=== PATIENT | female | born 1975 | race African-American/Black ===

== ENCOUNTER 2023-09-30 16:35 | Emergency (ER) | payer OTHER, SELFPAY ==
--- NOTE | ~2023-09-30 | CT_ITS ---
EXAMINATION: CT ABDOMEN AND PELVIS WITHOUT CONTRAST CLINICAL INFORMATION: Question obstruction COMPARISON: None available. TECHNIQUE: Multidetector volumetric imaging was performed from the superior aspect of the liver through the pubic symphysis. Sagittal and coronal reformatted images were obtained on the technologist's workstation. This CT examination was performed using dose optimization techniques as appropriate, variously including the following: *Automated exposure control *Adjustment of mA and/or kV according to patient size (this includes techniques or standardized protocols for targeted exams where dose is matched to indication/reason for exam; i.e. extremities or head) *Use of iterative reconstruction technique DLP: 455 mGy-cm FINDINGS: LUNG BASES: The visualized lung bases are unremarkable. LIVER, GALLBLADDER, AND BILIARY TREE: Nonspecific hepatomegaly. Small cysts noted right lobe. Liver attenuation appears borderline increased. No gross biliary ductal dilatation. Small gallstones within the gallbladder lumen without acute inflammatory changes. PANCREAS: Unremarkable. SPLEEN: Unremarkable. ADRENAL GLANDS: Unremarkable. KIDNEYS AND URETERS: The kidneys are normal in size, shape, and attenuation. No hydronephrosis, hydroureter, or calculi seen. No perinephric stranding. BLADDER: Unremarkable. GASTROINTESTINAL TRACT: Limited imaging due to lack of contrast and body habitus. There is moderate amount stool throughout the colon. Cecal base appears grossly unremarkable although the appendix is not definitively identified. No definite acute inflammatory changes. Bowel gas has somewhat disorganized with no multiple air-fluid levels noted within small bowel loops which are mildly prominent throughout. The transition zone definitively seen to indicate obstruction. No bowel wall thickening or pneumatosis intestinalis. No free fluid. ABDOMINAL WALL: No significant hernia is appreciated. LYMPH NODES: Normal. VASCULAR: Unremarkable. PELVIC VISCERA: Pelvic organs appear to be surgically absent. OSSEOUS STRUCTURES: Unremarkable. CT/CT abdomen pelvis wo IV con IMPRESSION: 1. Limited imaging due to lack of contrast and body habitus. There are multiple air-fluid levels within mildly prominent small bowel loops which are nonspecific. No transition zone definitively seen to indicate obstruction. No bowel wall thickening or pneumatosis intestinalis. Correlate clinically and follow-up accordingly. 2. Nonspecific hepatomegaly. 3. Gallstones without acute inflammatory changes. Fleischner guidelines were followed.
--- NOTE | ~2023-09-30 | XR_ITS ---
EXAMINATION: XR CHEST CLINICAL INFORMATION: Wheezing COMPARISON: None available. TECHNIQUE: 2 views of the chest were obtained. FINDINGS: No significant abnormality is noted involving the heart, lungs, mediastinum, bony thorax or soft tissues. XR/XR chest 2V IMPRESSION: Unremarkable examination.
--- NOTE | ~2023-09-30 | CT_ITS ---
EXAMINATION: CT ABDOMEN AND PELVIS WITH CONTRAST CLINICAL INFORMATION: Abdominal pain. COMPARISON: None available. TECHNIQUE: Multidetector volumetric images were obtained from the superior aspect of the liver through the pubic symphysis following administration 85 mL of Omnipaque 350 intravenous contrast. Sagittal and coronal reformatted images were obtained on the technologist's workstation. Oral contrast: No This CT examination was performed using dose optimization techniques as appropriate, variously including the following: *Automated exposure control *Adjustment of mA and/or kV according to patient size (this includes techniques or standardized protocols for targeted exams where dose is matched to indication/reason for exam; i.e. extremities or head) *Use of iterative reconstruction technique DLP: 564 mGy-cm FINDINGS: LUNG BASES: The visualized lung bases are unremarkable. LIVER, GALLBLADDER, AND BILIARY TREE: There are scattered hepatic hypodensities some too small to characterize but all likely small cysts. There is no intrahepatic biliary duct dilatation. Multiple gallstones are noted. PANCREAS: Unremarkable. SPLEEN: Unremarkable. ADRENAL GLANDS: Unremarkable. KIDNEYS AND URETERS: The kidneys are normal in size, shape, and attenuation. No hydronephrosis, hydroureter, or calculi seen. No perinephric stranding. BLADDER: Unremarkable. GASTROINTESTINAL TRACT: There is retained stool. Orally ingested contrast material reaches the descending colon. Small tubular structure along the cecum is likely a normal appendix. ABDOMINAL WALL: No significant hernia is appreciated. LYMPH NODES: Normal. VASCULAR: There is atherosclerotic plaque of the abdominal aorta and proximal branches. PELVIC VISCERA: Unremarkable. OSSEOUS STRUCTURES: Unremarkable. CT/CT abdomen pelvis w IV con IMPRESSION: 1. No acute abnormality. 2. Cholelithiasis without evidence of acute cholecystitis. 3. Retained stool throughout the colon. Fleischner guidelines were followed.
[2023-09-30 16:47] VITALS: BP 94/68; PULSE 81; O2SAT 95
[2023-09-30 17:10] VITALS: BP 116/77; BP 94/68; PULSE 75; PULSE 81; RESP 16; TEMP 36.7; O2SAT 95; O2SAT 96; BMI 24.4
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
--- NOTE | 2023-09-30 18:58 | MHC.EDTECH ---
THIS TECH TOOK OVER AT 1900
[2023-09-30] MEDS: Acetaminophen 325 MG TABLET 975 MG PO (18:59)
--- NOTE | 2023-09-30 19:08 | PC.NURSE ---
this rn assumed care of pt, pt resting in stretcher, no acute distress noted. 2 Publishing Manager at bedside. labs being obtained at this time.
[2023-09-30 19:31] LABS: Basophils Percent Auto 0.3 % (0-2); Eosinophils Absolute Auto 0.3 X10*3/uL (0.0-0.4); Eosinophils Percent Auto 3.6 % (0-4); Hematocrit 35.6 % (37.0-47.0); Hemoglobin 11.7 g/dl (12.0-16.0); Imm Gran Abs Auto 0.02 X10*3/uL (0.00-0.03); Imm Gran Pct Auto 0.3 % (0.0-0.4); Lymphocytes Absolute Auto 3.3 X10*3/uL (1.2-4.9); Lymphocytes Percent Auto 43.7 % (20-40); MANUAL DIFF FLAG SCAN; Mean Corpuscular HGB Conc 32.9 g/dl (31.0-35.0); Mean Corpuscular Hemoglobin 31.4 pg (27.0-33.0); Mean Corpuscular Volume 95.4 fL (80.0-98.0); Mean Platelet Volume 8.6 fL (9.4-12.3); Monocytes Absolute Auto 0.6 X10*3/uL (0.1-1.2); Monocytes Percent Auto 7.5 % (2-11); Neutrophils Absolute Auto 3.4 x10*3/uL (2.0-8.3); Neutrophils Percent Auto 44.6 % (45-73); Platelet Count 334 X10*3/uL (160-400); Red Blood Count 3.73 X10*6/uL (4.20-5.50); Red Cell Distribution Width 13.3 % (11.0-16.0); SCAN SMEAR FLAG 1; White Blood Count 7.5 X10*3/uL (4.8-10.8)
[2023-09-30 19:47] VITALS: BP 105/62; PULSE 75; RESP 17; TEMP 37.1; O2SAT 96
[2023-09-30 19:55] LABS: Alanine Aminotransferase 48 U/L (0-31); Albumin Level 3.9 g/dL (3.5-5.0); Alkaline Phosphatase 130 U/L (39-117); Anion Gap 12 (12-20); Aspartate Amino Transferase 32 U/L (5-31); Bilirubin Total 0.2 mg/dL (0.0-1.0); Blood Urea Nitrogen 14 mg/dL (9-16); Calcium 9.9 mg/dL (8.4-10.2); Carbon Dioxide 28 mmol/L (22-29); Chloride 104 mmol/L (96-108); Creatinine Clr Calc Pharmacy 94.2; Estimated Glomerular Filt Rate > 60; Glucose Random 96 mg/dL (60-115); Lipase 20 U/L (8-78); Magnesium 2.2 mg/dL (1.6-2.6); Potassium 4.1 mmol/L (3.3-5.1); Sodium 140 mmol/L (135-145); Total Protein 6.8 g/dL (6.5-8.0)
[2023-09-30 19:56] LABS: HCG Quantitative < 2 mIU/mL
[2023-09-30 19:59] LABS: Influenza A PCR NEGATIVE (Negative); Influenza B PCR NEGATIVE (Negative); Resp Syncy Virus RNA Qual PCR NEGATIVE (Negative); SARS COV2 PCR INHOUSE NEGATIVE (Negative)
[2023-09-30 21:43] LABS: SLIDE REVIEW VERIFIED
--- NOTE | 2023-09-30 22:21 | PC.NURSE ---
20G placed in pt right AC at this time, no acute distress noted, deputy sheriff bailiff at bedside.
[2023-09-30 23:12] VITALS: BP 118/69; PULSE 76; RESP 16; TEMP 36.5; O2SAT 95
[2023-10-01] MEDS: 0.9 % Sodium Chloride 1,000 ML 999 ML IV (00:03)
[2023-10-01 00:09] LABS: Appearance Urine Clear; Color Urine Yellow; Glucose Urine UA Negative (Negative); Leukocyte Esterase Urine Negative (Negative); Nitrite Urine Negative (Negative); Urine Blood Negative (Negative); Urine Ketones Negative (Negative); Urine Protein Negative (Neg-Trace)
[2023-10-01] MEDS: Diatrizoate Meglumine, Sodium 30 ML SOLUTION PO (00:23)
[2023-10-01] MEDS: iohexoL 350 MG/ML 100 ML INFUS..BTL 85 ML IV (00:24)
[2023-10-01 01:18] LABS: Lactic Acid 1.2 mmol/L (0.5-2.0)
[2023-10-01] MEDS: Milk of Magnesia 30 ML ORAL.SUSP PO (02:21)
[2023-10-01] MEDS: bisacodyL 5 MG TABLET.DR 10 MG PO (02:21)
--- NOTE | 2023-10-01 02:38 | PC.NURSE ---
discharge papers given to Danial at bedside, pt taken out with danial.
[2023-10-01 02:41] VITALS: BP 118/69; PULSE 76; RESP 16; TEMP 36.5; O2SAT 95
--- NOTE | 2023-10-01 02:45 | PC.NURSE ---
report given to brianna pope at [facility].
== END 2023-10-01 02:46 | disposition home or self-care (01) ==
PROVIDERS: Physician Assistant Medical; Emergency Provider Emergency Medicine
DX: K59.00 Constipation, unspecified (principal); K80.20 Calculus of gallbladder without cholecystitis without obstruction; R10.2 Pelvic and perineal pain; F11.20 Opioid dependence, uncomplicated; R06.2 Wheezing; R11.0 Nausea; Z11.52 Encounter for screening for COVID-19; Z20.822 Contact with and (suspected) exposure to COVID-19; Z79.899 Other long term (current) drug therapy
CPT/HCPCS: 0241U; 36415; 71046; 74176; 74177; 80053; 81003; 83605; 83690; 83735; 84702; 85025; 96360; 99285; Q9967

== ENCOUNTER 2024-02-20 08:16 | Outpatient (AMB) | payer OTHER, SELFPAY ==
[2024-02-20 08:26] VITALS: BP 115/62; PULSE 72; O2SAT 96; BMI 24.5
--- NOTE | 2024-02-20 08:26 | A.OFFVIS_ITS ---
Vital Signs 02/20/24 08:26 Height 5 ft 7 in Weight 156 lb 8.451 oz BMI 24.5 BP 115/62 Blood Pressure Location Lt brachial Position Sitting Pulse 72 Pulse Source Pulse Oximeter Pulse Oximetry (%) 96 Oxygen Delivery Method Room Air Intake Visit Reasons: Chronic Pain Allergies fish derived [fish] Allergy (Verified 02/20/24 08:31) Unknown trazodone Adverse Reaction (Verified 02/20/24 08:31) Unknown Medication List - Last Reconciled 02/20/24 by Amy Whitley acetaminophen 650 mg PO Q6H PRN albuterol 90 mcg/actuation mcg inhalation aluminum-magnesium hydroxide 200-200 mg/5 mL 5 mL PO Q4-6H PRN baclofen 5 mg PO BID benzocaine-menthol 15-2.6 mg (Cepacol Sore Throat (benzocaine-menthol)) 1 carole mucous membrane Q2H PRN bisacodyl (Dulcolax (bisacodyl)) 10 mg (2 x 5 mg) PO BEDTIME PRN buprenorphine HCl 4 mg sublingual DAILY clonazepam (Klonopin) 0.5 mg PO BID clonidine HCl 0.1 mg PO TID clotrimazole 1% 1 appl topical BID docusate sodium 100 mg PO DAILY duloxetine (Cymbalta) 60 mg PO DAILY ergocalciferol (vitamin D2) 1,250 mcg PO .month famotidine (Pepcid) 20 mg PO BID hydroxyzine pamoate 50 mg PO QID PRN lactulose 20 grams PO ONCE magnesium citrate 148 mg PO DAILY mirtazapine 30mg 2 tabs orally bedtime; naproxen 500 mg PO BID nicotine 1 patch transdermal DAILY ondansetron HCl 4 mg PO Q6H paliperidone palmitate 234 mg IM Q30D pantoprazole (Protonix) 20 mg PO DAILY polyethylene glycol 3350 (Miralax) 17 grams PO DAILY HPI Comments Details: Mitra is a very pleasant 48-year-old female who presents the office today, accompanied by the Plastics Production Machine Operator's Department, for evaluation and management of her chronic pain She endorses all-over pain, back, abdomen, legs, knees that started when she was a young child. History of opiate use disorder, currently on Subutex but states that it makes her bloated and nauseous. Previously she was on methadone which helped her pain and treated her opiate use disorder. She is looking to transition back to methadone She is currently taking Tylenol, naproxen and baclofen without improvement. In the past she was prescribed gabapentin though today she is not able to report if it helped her pain or not She has never had injections her pain. Denies history of PT, acupuncture, massage, chiropractor. Currently resides in a secure mental health facility as ordered by the court. Denies red flag symptoms including new loss of bowel, bladder or saddle anesthesia History of substance use disorder: Marijuana and opiates Denies current use of anticoagulants Denies implantable devices, pacemaker defibrillator [facility] Medical History (Updated 02/20/24 @ 11:45 by Lizbeth Fish APRN, ELECTRONIC ORGAN TECHNICIAN) Chronic pain Asthma Traumatic brain injury depression PTSD (post-traumatic stress disorder) Schizophrenia Social History (Updated 02/20/24 @ 11:46 by Lizbeth Fish APRN, ELECTRONIC ORGAN TECHNICIAN) Patient Tobacco Use Status: Current everyday Tobacco user Substance Use Type: Marijuana and Opiates Physical Exam Vital Signs: Last Vital Signs Pulse 72 02/20/24 08:26 BP 115/62 02/20/24 08:26 Pulse Ox 96 02/20/24 08:26 Oxygen Delivery Method Room Air 02/20/24 08:26 BMI result Body Mass Index 24.5 General: awake, alert, oriented. Answers questions appropriately. Withdrawn. Wearing shackles to the wrist and ankles, accompanied by heat treater apprentice's department. Skin: warm, dry, intact HEENT: Normocephalic. Hearing intact. Cardiac: External chest normal in appearance. Respiratory: No cough, audible wheezing or stridor. Abdomen: without gross distension. MS: No obvious swelling or deformities. Able to transition from sit to stand unassisted. Ambulates with bilaterally normal heel strike and toe off Neurological: Oriented to person, place, time and situation. Thought process intact. No gait abnormalities appreciated. Psychiatric: Appropriate mood and affect. Good judgment and insight. Results Reviewed Results Reviewed: 10/01/2023 CT/CT abdomen pelvis w IV con FINDINGS: LUNG BASES: The visualized lung bases are unremarkable. LIVER, GALLBLADDER, AND BILIARY TREE: There are scattered hepatic hypodensities some too small to characterize but all likely small cysts. There is no intrahepatic biliary duct dilatation. Multiple gallstones are noted. PANCREAS: Unremarkable. SPLEEN: Unremarkable. ADRENAL GLANDS: Unremarkable. KIDNEYS AND URETERS: The kidneys are normal in size, shape, and attenuation. No hydronephrosis, hydroureter, or calculi seen. No perinephric stranding. BLADDER: Unremarkable. GASTROINTESTINAL TRACT: There is retained stool. Orally ingested contrast material reaches the descending colon. Small tubular structure along the cecum is likely a normal appendix. ABDOMINAL WALL: No significant hernia is appreciated. LYMPH NODES: Normal. VASCULAR: There is atherosclerotic plaque of the abdominal aorta and proximal branches. PELVIC VISCERA: Unremarkable. OSSEOUS STRUCTURES: Unremarkable. IMPRESSION: 1. No acute abnormality. 2. Cholelithiasis without evidence of acute cholecystitis. 3. Retained stool throughout the colon. Assessment & Plan Assessment & Plan (1) Substance use disorder: Code(s): F19.90 - Other psychoactive substance use, unspecified, uncomplicated Category: Medical Plan Mitra presented to the office today for evaluation management of her chronic pain. History of substance use disorder, currently on Subutex. She is requesting to be transitioned to methadone that she was previously prescribed for substance use disorder. Advised patient that this is not a service that we provide at this office. Referral was placed for addiction medicine as the [facility] not provide methadone. [address] [address] [email or web address] [phone] All questions and concerns were answered, patient agrees with the plan. Orders: Referrals Addiction Medicine Referral F19.90 - Other psychoactive substance use, unspecified, uncomplicated Coding Level of Care Code New Pt Level 4 (61838) Diagnoses Substance use disorder F19.90
== END 2024-02-20 09:05 | disposition home or self-care (01) ==
PROVIDERS: Referring Provider Psychiatry & Neurology Geriatric Psychiatry; Visit Provider Registered Nurse Emergency
DX: F19.90 Other psychoactive substance use, unspecified, uncomplicated (principal)
CPT/HCPCS: 99204

== ENCOUNTER → 2024-02-20 08:16 | Outpatient (BNVA) | payer OTHER, SELFPAY | PROVIDERS: Referring Provider Psychiatry & Neurology Geriatric Psychiatry; Visit Provider Registered Nurse Emergency | DX: F19.90 Other psychoactive substance use, unspecified, uncomplicated (principal) | CPT/HCPCS: 99202 ==

== ENCOUNTER 2024-03-15 10:57 | Outpatient (AMB) | payer OTHER, SELFPAY ==
--- NOTE | 2024-03-15 11:07 | A.OFFVIS_ITS ---
Vital Signs 03/15/24 11:10 Height 5 ft 7 in Weight 176 lb 12.972 oz BMI 27.7 BP 108/71 Blood Pressure Location Rt brachial Position Sitting Pulse 97 Intake Visit Reasons: Abdominal Pains. Intake Note: Patient here c/o abdominal pain. Feels bloated. Patient c/o: constipation, nausea. Denies bleeding with BM. Tire Worker Required: No Accompanied by: Correctional officers Allergies fish derived [fish] Allergy (Verified 02/20/24 08:31) Unknown trazodone Adverse Reaction (Verified 02/20/24 08:31) Unknown HPI HPI Abdominal Pains.: Details: HPI 48 yr f here for assessment for Gi symptoms She is at [facility] accompanied by today She goes to the toilet every other day stool comes out normal no blood is seen she denies abdominal pain she has chronic nausea which is pretty bad for her, she is on benztropine and paliperidone IM as well as suboxone, prn haldol she has issues with swallowing, might not be related to food she has severe heartburn she takes miralax, but she feesl it gives her heartburn she has never had endoscopy or colonoscopy ROS: Constitutional : No Weight loss, No Fever, No Chills ENT/Mouth : No sore throat, No Rhinorrhea Eyes: No Swelling, No Redness Cardiovascular : No Chest Pain, No SOB, No Edema Respiratory : No Cough, No Sputum, No Wheezing Gastrointestinal : see HPI Genitourinary : NO Dysuria, No Urinary Frequency, No Hematuria, No Urgency Musculoskeletal : No joint pain, No Myalgias, No Joint Swelling Skin : No Skin Lesions, No rash Neuro : No Weakness, No Numbness, No Dizziness, No Headache Psych : No Anxiety/Panic, No Depression Heme/Lymph: No Bruising, No Lymphadenopathy Endocrine : No Polyuria, No Polydipsia All other systems reviewed and are negative. Medical History Low BP anxiety and depression schizophrenia Surgical History none Family History unknown type of cancer in family Social History she denies smoking, opiate abuse, no IVDA< no snorting EXAM: GENERAL: The patient is well developed and nontoxic. VITAL SIGNS:see workflow HEENT: Nonicteric sclerae, PERRLA, EOMI. Oropharynx clear. Moist mucous membranes. Conjunctivae appear well perfused. No thyroid mass. CHEST: Chest wall is nontender. HEART: Regular rate and rhythm without murmurs. LUNGS: Clear to auscultation bilaterally. ABDOMEN: Soft, positive bowel sounds, nontender, no organomegaly.no flank tenderness SKIN: No rash, no excessive bruising, petechiae, or purpura. NEUROLOGIC: Cranial nerves II-XII intact without motor/sensory deficit. Psych: normal affect A/P: 1/ Nausea and reflux, on several medications which might be predisposing to this by causing reduced gastric emptying or colonic inertia 2/ Abn LFT per lab review, not known to have hep b,c 3/ mild anemia, not had period for 5 yrs Plan: 1/ check labs, incl hep serologies, hematinics 2/ EGD and colonoscopy for eval of nausea, anemia, reflux--can use suprep--will send message to the scheduling time with the facility 3/ can cont with current laxatives per [place] -- [facility] Medical History (Updated 03/15/24 @ 11:58 by Ely Heath MD) Chronic pain Asthma Traumatic brain injury depression PTSD (post-traumatic stress disorder) Schizophrenia Social History (Updated 02/20/24 @ 11:46 by Lizbeth Fish APRN, OFFICE 365 CONSULTANT) Patient Tobacco Use Status: Current everyday Tobacco user Substance Use Type: Marijuana and Opiates Physical Exam Vital Signs: Last Vital Signs Pulse 97 03/15/24 11:10 BP 108/71 03/15/24 11:10 BMI result Body Mass Index 27.7 Assessment & Plan Assessment & Plan (1) Nausea: Code(s): R11.0 - Nausea Category: Medical Plan: as above (2) Anemia: Code(s): D64.9 - Anemia, unspecified Category: Medical Plan: as above Orders: Orders Complete Blood Count Auto Diff Today D64.9 - Anemia, unspecified, R11.0 - Nausea TSH reflex Free T4 Today D64.9 - Anemia, unspecified, R11.0 - Nausea Vitamin B12 and Folate Today D64.9 - Anemia, unspecified, R11.0 - Nausea Ferritin Today D64.9 - Anemia, unspecified, R11.0 - Nausea C Reactive Protein Today D64.9 - Anemia, unspecified, R11.0 - Nausea Creatine Kinase Total Today D64.9 - Anemia, unspecified, R11.0 - Nausea UA CC w/rflx Micro + Cult Today D64.9 - Anemia, unspecified, R11.0 - Nausea, R30.0 - Dysuria Magnesium Today D64.9 - Anemia, unspecified, R11.0 - Nausea Comprehensive Met. Panel Today D64.9 - Anemia, unspecified, K75.81 - Nonalcoholic steatohepatitis (PINEDO), R11.0 - Nausea Hepatitis A,B,C Profile Today D64.9 - Anemia, unspecified, R11.0 - Nausea Immunoglobulins,IgG IgA IgM Today D64.9 - Anemia, unspecified, R11.0 - Nausea Zinc Today D64.9 - Anemia, unspecified, R11.0 - Nausea Coding Level of Care Code New Pt Level 4 (60713) Diagnoses Nausea R11.0 Anemia D64.9
[2024-03-15 11:10] VITALS: BP 108/71; PULSE 97; BMI 27.7
== END 2024-03-15 12:19 | disposition home or self-care (01) ==
PROVIDERS: Visit Provider Internal Medicine Gastroenterology
DX: R11.0 Nausea (principal); D64.9 Anemia, unspecified
CPT/HCPCS: 99204

== ENCOUNTER → 2024-03-15 10:57 | Outpatient (BNVA) | payer OTHER, SELFPAY | PROVIDERS: Visit Provider Internal Medicine Gastroenterology | DX: R11.0 Nausea (principal); D64.9 Anemia, unspecified | CPT/HCPCS: 99202 ==

== ENCOUNTER 2024-04-02 08:31 | Day surgery (SDC) | payer OTHER, SELFPAY ==
[2024-04-02 09:14] VITALS: BMI 27.4
[2024-04-02 09:28] VITALS: BP 150/93; PULSE 92; RESP 14; TEMP 36.4; O2SAT 95
--- NOTE | 2024-04-02 09:30 | P.CONAN_ITS ---
Documented by User: Ines Jara NP 03/29/24 10:54 HPI - Anesthesia Eval Consult details Narrative: 48yo F for Upper Endoscopy and Colonoscopy [facility] resident. Will be accompanied by virgil. Hx poly sub, on subutex? Hx TBI PMFSH Active Problems Active Problems: All Active Problems Anemia (Acute) Nausea (Acute) Chronic pain (Acute) Substance use disorder (Acute) Past Medical History Medical History (Updated 03/15/24 @ 11:58 by Ely Heath MD) Chronic pain Asthma Traumatic brain injury depression PTSD (post-traumatic stress disorder) Schizophrenia Surgical History Surgical History (Updated 04/02/24 @ 09:17 by Selene Alvares RN) Hx of tubal ligation Social History Social History (Updated 02/20/24 @ 11:46 by Lizbeth Fish APRN, CORE INSERTER) Patient Tobacco Use Status: Current everyday Tobacco user Substance Use Type: Marijuana and Opiates Advance Directives: No Advance Directives Information Provided: Yes Meds Allergies Allergy/AdvReac Type Severity Reaction Status Date / Time fish derived [fish] Allergy Unknown Verified 02/20/24 08:31 trazodone AdvReac Unknown Verified 02/20/24 08:31 Home Medications ?Medication ?Instructions ?Recorded ?Confirmed ?Last Taken ?Type acetaminophen 325 mg tablet 650 mg PO Q6H PRN 02/15/24 02/20/24 Unknown History aluminum-magnesium hydroxide 200 5 ml PO Q4-6H PRN 02/15/24 02/20/24 Unknown History mg-200 mg/5 mL oral suspension baclofen 5 mg tablet 5 mg PO BID 02/15/24 02/20/24 Unknown History benzocaine 15 mg-menthol 2.6 mg 1 carole mucous membrane Q2H PRN 02/15/24 02/20/24 Unknown History lozenges (Cepacol Sore Throat (benzocaine-menthol)) clonazepam 0.5 mg tablet (Klonopin) 0.5 mg PO BID 02/15/24 02/20/24 Unknown History clonidine HCl 0.1 mg tablet 0.1 mg PO TID 02/15/24 02/20/24 Unknown History clotrimazole 1 % topical cream 1 appl topical BID 02/15/24 02/20/24 Unknown History duloxetine 60 mg capsule,delayed 60 mg PO DAILY 02/15/24 02/20/24 Unknown History release (Cymbalta) ergocalciferol (vitamin D2) 1,250 1,250 mcg PO .month 02/15/24 02/20/24 Unknown History mcg (50,000 unit) capsule hydroxyzine pamoate 50 mg capsule 50 mg PO QID PRN 02/15/24 02/20/24 Unknown History magnesium citrate 125 mg capsule 148 mg PO DAILY 02/15/24 02/20/24 Unknown History mirtazapine 30 mg tablet See Rx Instructions PO BEDTIME 02/15/24 02/20/24 Unknown History naproxen 500 mg tablet 500 mg PO BID 02/15/24 02/20/24 Unknown History albuterol 90 mcg/actuation aerosol mcg inhalation 02/20/24 02/20/24 Unknown History inhaler buprenorphine HCl 2 mg sublingual 4 mg sublingual DAILY 02/20/24 02/20/24 Unknown History tablet docusate sodium 100 mg capsule 100 mg PO DAILY 02/20/24 02/20/24 Unknown History famotidine 20 mg tablet (Pepcid) 20 mg PO BID 02/20/24 02/20/24 Unknown History lactulose 20 gram/30 mL oral 20 g PO ONCE 02/20/24 02/20/24 Unknown History solution nicotine 14 mg/24 hr daily 1 patch transdermal DAILY 02/20/24 02/20/24 Unknown History transdermal patch ondansetron HCl 4 mg tablet 4 mg PO Q6H 02/20/24 02/20/24 Unknown History paliperidone palmitate 234 mg/1.5 234 mg IM Q30D 02/20/24 02/20/24 Unknown History mL intramuscular syringe pantoprazole 20 mg tablet,delayed 20 mg PO DAILY 02/20/24 02/20/24 Unknown History release (Protonix) Assessment and Plan Assessment Anesthesia Assessment: Chart Reviewed Documented by User: Lyndsey Pitt DO 04/02/24 09:34 HPI - Anesthesia Eval Consult details Narrative: 48yo F for Upper Endoscopy and Colonoscopy [facility] resident. Will be accompanied by publications inspector. Hx poly sub - on subutex Hx TBI but able to sign own consents. [facility] Past Medical History Medical History (Updated 03/15/24 @ 11:58 by Ely Heath MD) Chronic pain Asthma Traumatic brain injury depression PTSD (post-traumatic stress disorder) Schizophrenia Family History Family history of problems with anesthesia: No Surgical History Surgical History (Updated 04/02/24 @ 09:17 by Selene Alvares RN) Hx of tubal ligation History of Problems with Anesthesia: No Social History Social History (Updated 02/20/24 @ 11:46 by Lizbeth Fish APRN, CORE INSERTER) Patient Tobacco Use Status: Current everyday Tobacco user Substance Use Type: Marijuana and Opiates Advance Directives: No Advance Directives Information Provided: Yes Meds Allergies Allergy/AdvReac Type Severity Reaction Status Date / Time fish derived [fish] Allergy Unknown Verified 02/20/24 08:31 trazodone AdvReac Unknown Verified 02/20/24 08:31 Home Medications ?Medication ?Instructions ?Recorded ?Confirmed ?Last Taken ?Type acetaminophen 325 mg tablet 650 mg PO Q6H PRN 02/15/24 02/20/24 Unknown History aluminum-magnesium hydroxide 200 5 ml PO Q4-6H PRN 02/15/24 02/20/24 Unknown History mg-200 mg/5 mL oral suspension baclofen 5 mg tablet 5 mg PO BID 02/15/24 02/20/24 Unknown History benzocaine 15 mg-menthol 2.6 mg 1 carole mucous membrane Q2H PRN 02/15/24 02/20/24 Unknown History lozenges (Cepacol Sore Throat (benzocaine-menthol)) clonazepam 0.5 mg tablet (Klonopin) 0.5 mg PO BID 02/15/24 02/20/24 Unknown History clonidine HCl 0.1 mg tablet 0.1 mg PO TID 02/15/24 02/20/24 Unknown History clotrimazole 1 % topical cream 1 appl topical BID 02/15/24 02/20/24 Unknown History duloxetine 60 mg capsule,delayed 60 mg PO DAILY 02/15/24 02/20/24 Unknown History release (Cymbalta) ergocalciferol (vitamin D2) 1,250 1,250 mcg PO .month 02/15/24 02/20/24 Unknown History mcg (50,000 unit) capsule hydroxyzine pamoate 50 mg capsule 50 mg PO QID PRN 02/15/24 02/20/24 Unknown History magnesium citrate 125 mg capsule 148 mg PO DAILY 02/15/24 02/20/24 Unknown History mirtazapine 30 mg tablet See Rx Instructions PO BEDTIME 02/15/24 02/20/24 Unknown History naproxen 500 mg tablet 500 mg PO BID 02/15/24 02/20/24 Unknown History albuterol 90 mcg/actuation aerosol mcg inhalation 02/20/24 02/20/24 Unknown History inhaler buprenorphine HCl 2 mg sublingual 4 mg sublingual DAILY 02/20/24 02/20/24 Unknown History tablet docusate sodium 100 mg capsule 100 mg PO DAILY 02/20/24 02/20/24 Unknown History famotidine 20 mg tablet (Pepcid) 20 mg PO BID 02/20/24 02/20/24 Unknown History lactulose 20 gram/30 mL oral 20 g PO ONCE 02/20/24 02/20/24 Unknown History solution nicotine 14 mg/24 hr daily 1 patch transdermal DAILY 02/20/24 02/20/24 Unknown History transdermal patch ondansetron HCl 4 mg tablet 4 mg PO Q6H 02/20/24 02/20/24 Unknown History paliperidone palmitate 234 mg/1.5 234 mg IM Q30D 02/20/24 02/20/24 Unknown History mL intramuscular syringe pantoprazole 20 mg tablet,delayed 20 mg PO DAILY 02/20/24 02/20/24 Unknown History release (Protonix) Exam Exam Date and Time: 04/02/24 0930 Height,Weight and Vital Signs: Height 5 ft 7 in Weight 79.379 kg Airway Mallampati Class: II TM Dist: >3cm Neck ROM: Full Denture: Upper and Lower Heart: S1S2 Lungs: CTAB Assessment and Plan Assessment Anesthesia Assessment: Anesthesia Plan Discussed and Chart Reviewed Final Anesthetic Review Family History of Problems with Anesthesia: No History of Problems with Anesthesia: No NPO: Yes ASA Class: III Final Preanesthetic Review: No Changes in Pt Med Stat, Meds/Allgs Chart Reviewed, Consent Obtained/Reviewed and Anes Risks/Benef Reviewed Patient Risk: Intermediate Procedure Risk: Low Anesthetic Plan Anesthetic Plan: MAC: and Agree w/ Assess. and Plan Disposition: Standard PACU
--- NOTE | 2024-04-02 09:49 | MHC.SHP ---
Pre-Procedural Eval Section A - 24 Hr Update-Section A only Date of Service: 04/02/24 The patient is an INPATIENT: No The patient has been examined within 24 hours of the surgical procedure. The History & Physical has been completed within 30 days and I have reviewed it.: Yes Section B - Complete if H&P > 30 days Chief Complaint: Anemia, unspecified Allergies: Allergies Allergy/AdvReac Type Severity Reaction Status Date / Time fish derived [fish] Allergy Unknown Verified 02/20/24 08:31 trazodone AdvReac Unknown Verified 02/20/24 08:31 Plan Diagnosis/Plan: Unchanged I have reviewed the history and physical and performed a pertinent physical examination on my patient. No changes have occurred unless specified. egd,colo Time Spent With Patient Time: Total time managing care of this patient today ____ minutes.
--- NOTE | 2024-04-02 10:33 | P.OPN-COLO_ITS ---
Colonoscopy Operative Note Operative Note Date of Service: 04/02/24 Narrative: Operative Information Procedure Description: EGD, Colonoscopy Indication: anemia, nausea Anesthesia: MAC FLEXIBLE TRANSORAL UPPER GASTROINTESTINAL ENDOSCOPY AND COLONOSCOPY PROCEDURE NOTE UPPER ENDOSCOPY Consent: Indications for the procedure and potential complications of bleeding, perforation, reaction to medications and missed diagnosis were discussed with the patient and informed consent was obtained. Instrument: Olympus GIF H 190 J mid size upper endoscope Monitoring: Vital signs and clinical assessment, continuous EKG monitoring, Pulse oximetry, Carbon Dioxide monitoring and blood pressure monitoring were done throughout the procedure. Procedure: The patient was placed in the left lateral decubitis position and pre-procedure medications were administered and a bite block was placed. The endoscope was inserted into the mouth and advanced under direct vision to the third part of duodenum. A careful inspection was made as the upper endoscope was withdrawn including a retroflexed examination of the proximal stomach; Findings and interventions are described below. Findings: Larynx:normal Esophagus: GE junction at 37 cm, diaphragm hiatus at 37 cm, erosive streaks consistent with LA grade D esophagitis Stomach: Normal mucosa. Biopsies were obtained. Grade 2 flap valve on retroflexed examination of the cardia. Duodenum: Normal bulb and descending duodenum, bx taken Intervention: Biopsies as noted above, COLONOSCOPY Instrument: Olympus variable stiffness pediatric scope 190L Colonoscopy Monitoring: Vital signs and clinical assessment, continuous EKG monitoring, Pulse oximetry, Carbon Dioxide monitoring and blood pressure monitoring were done throughout the procedure. Colon withdrawal time was 11 minutes. Procedure: The patient was placed in the left lateral decubitis position and pre-procedure medications were administered. After a digital rectal examination of the ano-rectum, the video colonoscope was inserted into the rectum and advanced through the colon to the cecum/TI. The colonoscope was slowly withdrawn in a retrograde panoramic fashion and the colon mucosa was carefully examined including a retroflexed view of the rectum. Findings and interventions are described below. Procedure Difficulty:moderate Findings: Terminal Ileum-normal, random bx taken Random colon bx taken Cecum:normal Ascending Colon: 7-9 mm flat polyp injected with eleview and removed with cold snare Transverse Colon -normal Descending Colon:normal Sigmoid Colon: normal Rectum: Retroflexion with moderate sized internal hemorrhoids, grade I Anorectum - normal Colon preparation: [place] Bowel Preparation Scale Right colon; 2 Transverse colon: 2 Left colon; 1 (0 = Unprepared colon segment with mucosa not seen due to solid stool that cannot be cleared. 1 = Portion of mucosa of the colon segment seen, but other areas of the colon segment not well seen due to staining, residual stool and/or opaque liquid. 2 = Minor amount of residual staining, small fragments of stool and/or opaque liquid, but mucosa of colon segment seen well. 3 = Entire mucosa of colon segment seen well with no residual staining, small fragments of stool or opaque liquid) Impression and Post Procedure Diagnosis: Endoscopy Findings: erosive esophagitis Colonoscopy Findings: colon polyp internal hemorrhoids Plan: Await Pathology results Repeat Colonoscopy in 6-12 months or earlier if clinically indicated High fiber diet leaflet avoid straining at stool, epsom salts and sitz bath, anusol supps or cream High dose PPI e.g pantoprazole 40 mg BID, and repeat EGD in 6-12 months to document healing and r/o underlying barretts Above findings were reviewed with the patient and relevant handouts were provided if indicated.
[2024-04-02 10:45] VITALS: BP 93/60; PULSE 88; RESP 16; TEMP 36.1; O2SAT 94
[2024-04-02 11:00] VITALS: BP 135/47; PULSE 79; RESP 16; TEMP 36.1; O2SAT 96
== END 2024-04-02 11:23 | disposition home or self-care (01) ==
PROVIDERS: PCP Psychiatry & Neurology Psychiatry; Visit Provider Internal Medicine Gastroenterology
PROC: (CPT 45385; principal; 2024-04-02 10:00)
DX: Z12.11 Encounter for screening for malignant neoplasm of colon (principal); K63.5 Polyp of colon; K64.0 First degree hemorrhoids; D64.9 Anemia, unspecified; R11.0 Nausea; K29.50 Unspecified chronic gastritis without bleeding; B96.81 Helicobacter pylori [H. pylori] as the cause of diseases classified elsewhere; K20.80 Other esophagitis without bleeding; K44.9 Diaphragmatic hernia without obstruction or gangrene; K75.81 Nonalcoholic steatohepatitis (NASH); J45.909 Unspecified asthma, uncomplicated; F41.8 Other specified anxiety disorders; F20.9 Schizophrenia, unspecified; F43.10 Post-traumatic stress disorder, unspecified; G89.29 Other chronic pain; Z87.820 Personal history of traumatic brain injury; Z88.8 Allergy status to other drugs, medicaments and biological substances
CPT/HCPCS: 45385; 45380; 45381; 43239; 88305; 88313; 88342; J1100; J1596; J2003; J2704

== ENCOUNTER → 2024-04-02 08:31 | Outpatient (BNV) | payer OTHER, SELFPAY | PROVIDERS: PCP Psychiatry & Neurology Psychiatry; Visit Provider Internal Medicine Gastroenterology | DX: D64.9 Anemia, unspecified (principal); K29.70 Gastritis, unspecified, without bleeding; K20.90 Esophagitis, unspecified without bleeding; K63.5 Polyp of colon; K64.0 First degree hemorrhoids | CPT/HCPCS: 43239; 45380; 45381 ==

== ENCOUNTER 2024-07-29 11:44 | Outpatient (AMB) | payer OTHER, SELFPAY ==
--- NOTE | 2024-07-29 11:47 | MHC.OFFVIS ---
Vital Signs 07/29/24 11:48 Height 5 ft 7 in Weight 176 lb 5.917 oz BMI 27.6 BP 90/50 L Blood Pressure Location Lt brachial Position Sitting Pulse 81 Intake Visit Reasons: folloew up Intake Note: Mitra presents in the office as a follow up. CC: She states she gets some pains in the stomach and denies diarrhea - she does get constipation. Band And Cuff Cutter Required: No Allergies fish derived [fish] Allergy (Verified 02/20/24 08:31) Unknown trazodone Adverse Reaction (Verified 02/20/24 08:31) Unknown HPI HPI folloew up: Details: 48 yr f here for f/u RECAP She is at [facility] issues with nausea, heartburn EGD/[place]: 04/02/24 pos for h pylori--sent rx with quadruple therapy HP polyp on ascending colon INTERIM: appetite is not that great swallowing is better heartburn is gone v mild and occasional constipation she has urine discomfort and burning EXAM: GENERAL: The patient is well developed and nontoxic. VITAL SIGNS:see workflow HEENT: Nonicteric sclerae, PERRLA, EOMI. Oropharynx clear. Moist mucous membranes. Conjunctivae appear well perfused. No thyroid mass. CHEST: Chest wall is nontender. HEART: Regular rate and rhythm without murmurs. LUNGS: Clear to auscultation bilaterally. ABDOMEN: Soft, positive bowel sounds, nontender, no organomegaly.no flank tenderness SKIN: No rash, no excessive bruising, petechiae, or purpura. NEUROLOGIC: Cranial nerves II-XII intact without motor/sensory deficit. Psych: slightly flat affect but approriate A/P: 1/ Nausea and reflux, on several medications which might be predisposing to this by causing reduced gastric emptying or colonic inertia but found to havr h pylori, now treated with improvement 2/ Abn LFT per lab review, not known to have hep b,c 3/ colo polyp, hyperplastic Plan: 1/ re check LFT--will send order to [facility], as well as [facility], hep serologies 2/ she wanted to hold on colonoscopy repeat 3/ check h pylori breath test, confirm her med list with [facility] Medical History Chronic pain Asthma Traumatic brain injury depression PTSD (post-traumatic stress disorder) Schizophrenia Surgical History Hx of tubal ligation Social History Patient Tobacco Use Status: Never used Tobacco Substance Use Type: Marijuana and Opiates Physical Exam Vital Signs: BMI result Body Mass Index 27.6 Assessment & Plan Assessment & Plan (1) Anemia: Code(s): D64.9 - Anemia, unspecified Category: Medical Plan: as above (2) Abnormal LFTs: Code(s): R79.89 - Other specified abnormal findings of blood chemistry Category: Medical Plan: as above Orders: Orders Complete Blood Count Auto Diff Today D64.9 - Anemia, unspecified, R79.89 - Other specified abnormal findings of blood chemistry Comprehensive Met. Panel Today D64.9 - Anemia, unspecified, K75.81 - Nonalcoholic steatohepatitis (PINEDO), R79.89 - Other specified abnormal findings of blood chemistry Creatine Kinase Total Today D64.9 - Anemia, unspecified, R79.89 - Other specified abnormal findings of blood chemistry Hepatitis A,B,C Profile Today D64.9 - Anemia, unspecified, R79.89 - Other specified abnormal findings of blood chemistry Coding Level of Care Code Est Pt Level 3 (15357) Diagnoses Anemia D64.9 Abnormal LFTs R79.89
[2024-07-29 11:48] VITALS: BP 90/50; PULSE 81; BMI 27.6
== END 2024-07-29 13:15 | disposition home or self-care (01) ==
PROVIDERS: PCP Psychiatry & Neurology Psychiatry; Visit Provider Internal Medicine Gastroenterology
DX: D64.9 Anemia, unspecified (principal); R79.89 Other specified abnormal findings of blood chemistry
CPT/HCPCS: 99213

== ENCOUNTER → 2024-07-29 11:44 | Outpatient (BNVA) | payer OTHER, SELFPAY | PROVIDERS: PCP Psychiatry & Neurology Psychiatry; Visit Provider Internal Medicine Gastroenterology | DX: K59.00 Constipation, unspecified (principal); K75.81 Nonalcoholic steatohepatitis (NASH); R10.9 Unspecified abdominal pain; D64.9 Anemia, unspecified; R79.89 Other specified abnormal findings of blood chemistry | CPT/HCPCS: 99212 ==

== ENCOUNTER 2025-01-07 08:33 | Day surgery (SDC) | payer OTHER, SELFPAY ==
--- OUTSIDE RECORDS SUMMARY | 2024-12-17 14:03 | XMS_ITS | Patient Health Record ---
Author Organization [facility] Address [address], [place] [id number] Care Team Providers Care High [employer] Academic Coach Name Role Phone [employer] - DO NOT USE, Housing Application Prim gilliam Care Provider Unavailable Sobeida Myers Unavailable [facility] Sania ge Unavailable Reason For Referral No Information Plan Of Treatment No Information Insurance Providers Payer Name Payer Address Payer Phone Subscriber Number Group Number Insured Name Patient Relationship to Insured Coverage Start Date Coverage End Date [facility] [employer] [address] [place] [phone] [id number] Mitra Randolph Self - patient is the insured 2 2
--- NOTE | 2025-01-06 14:50 | HO.ANESPROP2 ---
Documented by User: Annabel Arriaza NP 01/06/25 14:51 HPI - Anesthesia Eval Consult details Narrative: 49 yr old female for upper endoscopy, colonoscopy. s/p same procedures 03/2024 H/O tubal ligation PMFSH Active Problems Active Problems: All Active Problems Abnormal LFTs (Acute) Anemia (Acute) Nausea (Acute) Substance use disorder (Acute) Chronic pain (Acute) Past Medical History Medical History Resides in [facility] Chronic pain Asthma Traumatic brain injury depression PTSD (post-traumatic stress disorder) Schizophrenia Family History Family history of problems with anesthesia: No Surgical History Surgical History H/O colonoscopy Hx of tubal ligation History of Problems with Anesthesia: No Social History Social History Patient Tobacco Use Status: Never used Tobacco Substance Use Type: Marijuana and Opiates Advance Directives: No Advance Directives Information Provided: Yes Meds Allergies Allergy/AdvReac Type Severity Reaction Status Date / Time fish derived (fish) Allergy Unknown Unknown Verified 11/08/24 13:45 trazodone AdvReac Unknown Unknown Verified 11/08/24 13:45 Home Medications ?Medication ?Instructions ?Recorded ?Confirmed ?Last Taken ?Type acetaminophen 325 mg tablet 650 mg PO Q6H PRN Pain 02/15/24 01/07/25 Unknown History aluminum-magnesium hydroxide 200 5 ml PO Q4-6H PRN gi upset 02/15/24 01/07/25 Unknown History mg-200 mg/5 mL oral suspension baclofen 5 mg tablet 5 mg PO BID 02/15/24 01/07/25 Unknown History clonazepam 0.5 mg tablet (Klonopin) 0.5 mg PO BID 02/15/24 01/07/25 01/07/25 History clonidine HCl 0.1 mg tablet 0.1 mg PO TID 02/15/24 01/07/25 01/07/25 History duloxetine 60 mg capsule,delayed 60 mg PO DAILY 02/15/24 01/07/25 01/07/25 History release (Cymbalta) hydroxyzine pamoate 50 mg capsule 50 mg PO QID PRN Anxiety 02/15/24 01/07/25 Unknown History mirtazapine 30 mg tablet See Rx Instructions PO BEDTIME 02/15/24 01/07/25 Unknown History docusate sodium 100 mg capsule 100 mg PO DAILY 02/20/24 01/07/25 Unknown History famotidine 20 mg tablet (Pepcid) 20 mg PO BID 02/20/24 01/07/25 01/07/25 History paliperidone palmitate 234 mg/1.5 234 mg IM Q30D 02/20/24 01/07/25 Unknown History mL intramuscular syringe albuterol sulfate 90 mcg/actuation 2 puff inhalation Q4-6H PRN 11/08/24 01/07/25 01/07/25 History aerosol inhaler (Ventolin HFA) Shortness Of Breath Or Wheezing lactulose 10 gram/15 mL oral 10 g PO DAILY 11/08/24 01/07/25 Unknown History solution methadone 10 mg tablet 40 mg PO DAILY 11/08/24 01/07/25 01/07/25 History zolpidem 5 mg tablet 5 mg PO BEDTIME 11/08/24 01/07/25 Unknown History Assessment and Plan Final Anesthetic Review Family History of Problems with Anesthesia: No History of Problems with Anesthesia: No Documented by User: Sandeep Funk MD 01/07/25 09:18 [facility] Past Medical History Medical History Resides in [facility] Chronic pain Asthma Traumatic brain injury depression PTSD (post-traumatic stress disorder) Schizophrenia Functional capacity: independent ambulation Surgical History Surgical History H/O colonoscopy Hx of tubal ligation Social History Social History Patient Tobacco Use Status: Never used Tobacco Substance Use Type: Marijuana and Opiates Advance Directives: No Advance Directives Information Provided: Yes Meds Allergies Allergy/AdvReac Type Severity Reaction Status Date / Time fish derived (fish) Allergy Unknown Unknown Verified 11/08/24 13:45 trazodone AdvReac Unknown Unknown Verified 11/08/24 13:45 Home Medications ?Medication ?Instructions ?Recorded ?Confirmed ?Last Taken ?Type acetaminophen 325 mg tablet 650 mg PO Q6H PRN Pain 02/15/24 01/07/25 Unknown History aluminum-magnesium hydroxide 200 5 ml PO Q4-6H PRN gi upset 02/15/24 01/07/25 Unknown History mg-200 mg/5 mL oral suspension baclofen 5 mg tablet 5 mg PO BID 02/15/24 01/07/25 Unknown History clonazepam 0.5 mg tablet (Klonopin) 0.5 mg PO BID 02/15/24 01/07/25 01/07/25 History clonidine HCl 0.1 mg tablet 0.1 mg PO TID 02/15/24 01/07/25 01/07/25 History duloxetine 60 mg capsule,delayed 60 mg PO DAILY 02/15/24 01/07/25 01/07/25 History release (Cymbalta) hydroxyzine pamoate 50 mg capsule 50 mg PO QID PRN Anxiety 02/15/24 01/07/25 Unknown History mirtazapine 30 mg tablet See Rx Instructions PO BEDTIME 02/15/24 01/07/25 Unknown History docusate sodium 100 mg capsule 100 mg PO DAILY 02/20/24 01/07/25 Unknown History famotidine 20 mg tablet (Pepcid) 20 mg PO BID 02/20/24 01/07/25 01/07/25 History paliperidone palmitate 234 mg/1.5 234 mg IM Q30D 02/20/24 01/07/25 Unknown History mL intramuscular syringe albuterol sulfate 90 mcg/actuation 2 puff inhalation Q4-6H PRN 11/08/24 01/07/25 01/07/25 History aerosol inhaler (Ventolin HFA) Shortness Of Breath Or Wheezing lactulose 10 gram/15 mL oral 10 g PO DAILY 11/08/24 01/07/25 Unknown History solution methadone 10 mg tablet 40 mg PO DAILY 11/08/24 01/07/25 01/07/25 History zolpidem 5 mg tablet 5 mg PO BEDTIME 11/08/24 01/07/25 Unknown History Exam Exam Date and Time: 01/07/2025 Airway TM Dist: >3cm Neck ROM: Full Denture: Upper (parial upper denture) Loose/Missing/Broken Teeth: Yes (mulpile missing teeth) Heart: rrr Lungs: cta Assessment and Plan Assessment Anesthesia Assessment: Anesthesia Plan Discussed Final Anesthetic Review NPO: Yes ASA Class: II Final Preanesthetic Review: No Changes in Pt Med Stat, Meds/Allgs Chart Reviewed, Consent Obtained/Reviewed and Anes Risks/Benef Reviewed Patient Risk: Low Procedure Risk: Low Anesthetic Plan Disposition: Standard PACU
[2025-01-07 07:54] VITALS: BMI 27.7
--- NOTE | 2025-01-07 07:58 | PC.NURSE ---
spoke to nurse where patient resides [facility] went over prep, results, and meds. patient does sign for self section 12 to facility will accompany patient npo after midnight
[2025-01-07 08:43] VITALS: BP 129/78; PULSE 73; RESP 20; TEMP 36.4; O2SAT 97; BMI 28.9
--- NOTE | 2025-01-07 08:53 | P.HPSUR_ITS ---
Pre-Procedural Eval Section A - 24 Hr Update-Section A only Date of Service: 01/07/25 Section B - Complete if H&P > 30 days Chief Complaint: Gastro-esophageal reflux disease with esophagitis, Relevant Family History (Specify if Yes): No Relevant Social History: None Present Medications: see Short Stay Collaborative assessment Medical History: Significant History (Resides in [facility] care facility Chronic pain Asthma Traumatic brain injury depression PTSD (post-traumatic stress disorder) Schizophrenia) History of Previous Operations: Relevant previous surgery/procedure and date(s) ( H/O colonoscopy Hx of tubal ligation) Allergies: Allergies Allergy/AdvReac Type Severity Reaction Status Date / Time fish derived (fish) Allergy Unknown Unknown Verified 11/08/24 13:45 trazodone AdvReac Unknown Unknown Verified 11/08/24 13:45 Review of Systems Sugical H&P ROS: Negative: Constitution, Cardiovascular, Respiratory, Neurological, Psychiatric, Hem-Onc, Allergic/Immunologic, Gastrointestinal, Genitourinary, Musculoskeletal, Integumentary, Endocrine and Eyes/Ears/Nose/Throat Exam Surgical H&P Exam: Normal: HEENT, Normal: Heart, Normal: Lungs, Normal: Extremities, Normal: Abdomen, Normal: Skin and Normal: Neurological Plan Diagnosis/Plan: Unchanged I have reviewed the history and physical and performed a pertinent physical examination on my patient. No changes have occurred unless specified. Time Spent With Patient Time: Total time managing care of this patient today ____ minutes.
[2025-01-07] MEDS: Lactated Ringers 1,000 ML 100 ML IVCONT (09:01)
--- NOTE | 2025-01-07 09:53 | HO.OPN-COLON ---
Colonoscopy Operative Note Operative Note Date of Service: 01/07/25 Narrative: Operative Information Procedure Description: EGD, Colonoscopy Indication: hx of esophagitis and polyp, fair prep Anesthesia: MAC FLEXIBLE TRANSORAL UPPER GASTROINTESTINAL ENDOSCOPY AND COLONOSCOPY PROCEDURE NOTE UPPER ENDOSCOPY Consent: Indications for the procedure and potential complications of bleeding, perforation, reaction to medications and missed diagnosis were discussed with the patient and informed consent was obtained. Instrument: Olympus GIF H 190 J mid size upper endoscope Monitoring: Vital signs and clinical assessment, continuous EKG monitoring, Pulse oximetry, Carbon Dioxide monitoring and blood pressure monitoring were done throughout the procedure. Procedure: The patient was placed in the left lateral decubitis position and pre-procedure medications were administered and a bite block was placed. The endoscope was inserted into the mouth and advanced under direct vision to the third part of duodenum. A careful inspection was made as the upper endoscope was withdrawn including a retroflexed examination of the proximal stomach; Findings and interventions are described below. Findings: Larynx:normal Esophagus: GE junction at 37 cm, diaphragm hiatus at 37 cm, erosive streaks consistent with LA grade D esophagitis as before Stomach:Patchy erythema. Biopsies were obtained. Grade 2 flap valve on retroflexed examination of the cardia. On the posterior wall a gastroenteric anastomosis was noted, not seen at last EGD, in addition to what appeared to be a preserved pylorus. bx taken from around anasotmosis as there appeared to be some areas of metaplasia Duodenum: Normal bulb and descending duodenum Intervention: Biopsies as noted above, COLONOSCOPY Instrument: Olympus variable stiffness pediatric scope 190L Colonoscopy Monitoring: Vital signs and clinical assessment, continuous EKG monitoring, Pulse oximetry, Carbon Dioxide monitoring and blood pressure monitoring were done throughout the procedure. Colon withdrawal time was 7 minutes. Procedure: The patient was placed in the left lateral decubitis position and pre-procedure medications were administered. After a digital rectal examination of the ano-rectum, the video colonoscope was inserted into the rectum and advanced through the colon to the cecum/TI. The colonoscope was slowly withdrawn in a retrograde panoramic fashion and the colon mucosa was carefully examined including a retroflexed view of the rectum. Findings and interventions are described below. Procedure Difficulty:moderate Findings: Terminal Ileum-not intubated Cecum:normal Ascending Colon: normal Transverse Colon -normal Descending Colon:normal Sigmoid Colon: normal Rectum: Retroflexion with medium sized internal hemorrhoids, grade I Anorectum - normal Colon preparation: [place] Bowel Preparation Scale Right colon; 1-2 Transverse colon: 1-2 Left colon; 1-2 (0 = Unprepared colon segment with mucosa not seen due to solid stool that cannot be cleared. 1 = Portion of mucosa of the colon segment seen, but other areas of the colon segment not well seen due to staining, residual stool and/or opaque liquid. 2 = Minor amount of residual staining, small fragments of stool and/or opaque liquid, but mucosa of colon segment seen well. 3 = Entire mucosa of colon segment seen well with no residual staining, small fragments of stool or opaque liquid) Impression and Post Procedure Diagnosis: Endoscopy Findings: erosive esophagitis post surgical changes Colonoscopy Findings: internal hemorrhoids Plan: Await Pathology results Repeat Colonoscopy in 1-2 years due to prep or earlier if clinically indicated High fiber diet leaflet avoid straining at stool, epsom salts and sitz bath, anusol supps or cream stop famotidine and use esomeprazole 20 mg Above findings were reviewed with the patient and relevant handouts were provided if indicated.
[2025-01-07 09:58] VITALS: BP 117/58; PULSE 69; RESP 18; TEMP 36.4; O2SAT 98
[2025-01-07 10:13] VITALS: PULSE 73; RESP 14; O2SAT 98
== END 2025-01-07 10:46 | disposition home or self-care (01) ==
PROVIDERS: Visit Provider Internal Medicine Gastroenterology
PROC: (CPT 45378; principal; 2025-01-07 09:10)
DX: Z12.11 Encounter for screening for malignant neoplasm of colon (principal); K64.0 First degree hemorrhoids; K59.00 Constipation, unspecified; R10.9 Unspecified abdominal pain; K21.00 Gastro-esophageal reflux disease with esophagitis, without bleeding; K31.7 Polyp of stomach and duodenum; Z98.0 Intestinal bypass and anastomosis status; D64.9 Anemia, unspecified; R79.89 Other specified abnormal findings of blood chemistry; K75.81 Nonalcoholic steatohepatitis (NASH); G89.29 Other chronic pain; F20.9 Schizophrenia, unspecified; Z87.820 Personal history of traumatic brain injury; J45.909 Unspecified asthma, uncomplicated; Z98.51 Tubal ligation status; F43.10 Post-traumatic stress disorder, unspecified; Z98.890 Other specified postprocedural states; Z88.8 Allergy status to other drugs, medicaments and biological substances
CPT/HCPCS: 45378; 43239; 88305; 88313; 88342

== ENCOUNTER → 2025-01-07 08:33 | Outpatient (BNV) | payer OTHER, SELFPAY | PROVIDERS: Visit Provider Internal Medicine Gastroenterology | DX: K21.00 Gastro-esophageal reflux disease with esophagitis, without bleeding (principal); Z12.11 Encounter for screening for malignant neoplasm of colon; K64.0 First degree hemorrhoids | CPT/HCPCS: 43239; 45378 ==

== ENCOUNTER 2025-04-30 10:30 | Outpatient (AMB) | payer OTHER, SELFPAY ==
--- NOTE | 2025-04-30 10:32 | A.OFFVIS_ITS ---
Vital Signs 04/30/25 10:33 Height 5 ft 7 in Weight 191 lb 2 oz BMI 29.9 BP 108/66 Blood Pressure Location Rt brachial Position Sitting Pulse 82 Pulse Source Pulse Oximeter Pulse Oximetry (%) 96 Oxygen Delivery Method Room Air Intake Visit Reasons: COPD Allergies fish derived (fish) Allergy (Unknown, Verified 04/30/25 10:39) Unknown trazodone Adverse Reaction (Unknown, Verified 04/30/25 10:39) Unknown HPI HPI COPD: Details: Mitra is a pleasant 49-year-old female, former 20 pack-year smoker quit 2 years ago with underlying asthma, schizophrenia, PTSD and TBI. She was referred by PCP for pulmonary evaluation. She is currently residing at [facility] and is accompanied by staff member. The patient has a history of asthma diagnosed in childhood and currently uses albuterol two to three times daily, which provides relief. She has not used any other inhalers and has not been on antibiotics or prednisone recently. The patient reports experiencing dyspnea for the past three months, accompanied by wheezing and postnasal drip. She denies any recent exposure to allergens or chemicals and has no history of secondhand smoke exposure. A chest x-ray was performed and reported as normal, but a CT scan is planned for further evaluation, given smoking history. She denies seasonal allergies. She denies any occupational exposures. She reports mother with history of asthma otherwise no pertinent family history. [facility] Medical History (Updated 04/30/25 @ 12:54 by Amie Mccoy NP) Resides in nursing home care facility Chronic pain Asthma Traumatic brain injury depression PTSD (post-traumatic stress disorder) Schizophrenia Surgical History H/O colonoscopy Hx of tubal ligation Social History (Updated 04/30/25 @ 10:38 by Hansa Ying CMA) Patient Tobacco Use Status: Former Tobacco user Substance Use Type: Marijuana and Opiates Review of Systems Const Denies chills, Denies excessive sweating, Denies fever(s), Denies headache(s) a nd Denies night sweats Eyes Denies dry eyes, Denies irritation and Denies itchy eyes ENT Reports Normal hearing present, Denies headache(s), Denies nasal congestion, Denies nasal discharge, Denies post nasal drip and Denies sore throat Card Denies chest pain, Denies chest pain at rest, Denies chest pain with activity, Denies claudication, Denies leg edema, Denies orthopnea and Denies paroxysmal nocturnal dyspnea Resp Denies chest congestion, Denies excessive phlegm production, Denies pain on ins piration, Denies pain with cough and Denies stridor Musc Denies myalgias Neuro Reports Normal hearing present and Denies headache(s) Endo Denies excessive sweating Cristobal/Lymph Denies lymphadenopathy Aller/Immun Denies itchy eyes and Denies seasonal rhinorrhea Physical Exam Vital Signs: Last Vital Signs Pulse 82 04/30/25 10:33 BP 108/66 04/30/25 10:33 Pulse Ox 96 04/30/25 10:33 Oxygen Delivery Method Room Air 04/30/25 10:33 BMI result Body Mass Index 29.9 Const General: cooperative, healthy appearing, comfortable, no acute distress, well developed and alert Orientation/consciousness: patient oriented x3 Limitations: no limitations HEENT Head: Yes normal to inspection, Yes normocephalic and Yes atraumatic Ears: hearing grossly normal bilaterally and external ears normal Eyes General: appearance normal, both eyes and all related structures Eyelids: Yes eyelids normal Sclerae: sclerae normal EOM: EOMs intact bilaterally Neck Neck: Yes normal visual inspection and Yes no lymphadenopathy Lymphatic: no lymphadenopathy noted Chest Chest palpation & inspection: normal inspection of the chest Resp Effort & Inspection: normal respiratory effort, able to speak in complete sen tences, no audible wheezes, no cough, no stridor, not tachypneic, no tripod positioning and no use of accessory muscles Auscultation: clear to auscultation bilaterally Cardio Jugular venous distension: no JVD Rate: regular rate Rhythm: regular rhythm Skin Other: warm, dry General skin exam: no rashes or lesions noted Neuro General: patient oriented x3 Cranial nerves: Yes Normal hearing present Cognition (Neuro): normal cognition Gait exam (Neuro): Normal gait present Extrem General: Yes normal to inspection, Yes capillary refill normal, Yes no clubbing, cyanosis or edema and Yes no pedal edema Psych Appearance: grossly normal and well kempt Speech and movement: Normal speech and movement present and Clear speech present Affect: normal affect Attitude: cooperative Thought process: Normal thought process present Thought content: Normal thought content present Insight: Fair insight present (Psych) Judgement: Fair judgement present (Psych) Assessment & Plan Assessment & Plan (1) Asthma: Code(s): J45.909 - Unspecified asthma, uncomplicated Category: Medical (2) Personal history of tobacco use: Code(s): Z87.891 - Personal history of nicotine dependence Category: Social Hx Plan Symptoms likely related to poorly controlled asthma, will send Arnuity for improved management in addition to albuterol MDI PRN. Discussed importance of good oral hygiene to prevent thrush. Will also send for PFT to assess severity of obstructive defect and enter referral to the lung screening program given smoking history. All questions were answered and patient is in agreement of plan. Will follow up to in 8-10 weeks or sooner if needed. Orders: Orders PFT pulmonary function test Today J45.909 - Unspecified asthma, uncomplicated Referrals Lung Cancer Screening Referral Z87.891 - Personal history of nicotine dependence Medications: New fluticasone furoate 100 mcg/actuation (Arnuity Ellipta) 1 inh inhalation DAILY 30 ea 3RF Coding Level of Care Code New Pt Level 4 (96376) Diagnoses Asthma J45.909 Personal history of tobacco use Z87.895
[2025-04-30 10:33] VITALS: BP 108/66; PULSE 82; O2SAT 96; BMI 29.9
--- OUTSIDE RECORDS SUMMARY | 2025-04-30 12:35 | XMS_ITS | Patient Health Record ---
Author Organization [facility] Address [address] [place] [address] Care Team Providers Care Steel Worker Name Role Phone ZZArchive - DO NOT USE, Housing Application [facility] [place] Care Provider Unavailable Sobeida Myers Unavailable [facility] ([facility]) Unavailable [phone] Reason For Referral No Information Plan Of Treatment No Information Insurance Providers Payer Name Payer Address Payer Phone Subscriber Number Group Number Insured Name Patient Relationship to Insured Coverage Start Date Coverage End Date [facility] [employer] [address] [place] [phone] [id number] Mitra Randolph Self - patient is the insured 2 2
== END 2025-04-30 11:33 | disposition home or self-care (01) ==
LOC: HO.HPSW 10:31
PROVIDERS: Visit Provider Nurse Practitioner Family
DX: J45.909 Unspecified asthma, uncomplicated (principal); Z87.891 Personal history of nicotine dependence
CPT/HCPCS: 99204

== ENCOUNTER → 2025-04-30 10:30 | Outpatient (BNVA) | payer OTHER, SELFPAY | PROVIDERS: Visit Provider Nurse Practitioner Family | DX: J45.909 Unspecified asthma, uncomplicated (principal); Z87.891 Personal history of nicotine dependence | CPT/HCPCS: 99202 ==